=== PATIENT | male | born 1950 | race Caucasian/White ===

== ENCOUNTER 2018-02-16 18:14 | Emergency (ER) | payer MEDICARE, BC ==
[2018-02-16] MEDS ORDERED: Adacel (T-DAP) 0.5 ML SYRINGE ONE (18:40)
[2018-02-16] MEDS ORDERED: Lidocaine 1% 20 ML MDV ONE (18:40)
[2018-02-16] MEDS ORDERED: Bacitracin Zinc 1 Packet ONE (18:59)
--- NOTE | 2018-02-16 19:57 | RAD ---
LEFT THUMB 3 VIEWS: Date: 02/16/18 HISTORY: Laceration. COMPARISON: None. FINDINGS: There is a sagittal split throughout the distal phalanx of the thumb extending from the tuft to the b ase extending into the interphalangeal joint. Mild degenerative disease of the thumb interphalangeal joint. IMPRESSION: Nondisplaced sagittal split fracture of the distal phalanx of the thumb extending from the tuft to th e interphalangeal joint. POS: HOME
== END 2018-02-16 19:53 | disposition home or self-care (01) ==
LOC: SCSER 18:14
DX: S67.02XA Crushing injury of left thumb, initial encounter (principal); S62.525A Nondisplaced fracture of distal phalanx of left thumb, initial encounter for closed fracture; I25.2 Old myocardial infarction; I10 Essential (primary) hypertension; Z79.82 Long term (current) use of aspirin; Z79.899 Other long term (current) drug therapy; W23.0XXA Caught, crushed, jammed, or pinched between moving objects, initial encounter
CPT/HCPCS: 12001; 90471; 90715; J2001

== ENCOUNTER 2018-07-23 16:05 | Emergency (ER) | payer MEDICARE, BC | END 2018-07-23 16:53 | disposition home or self-care (01) | LOC: SCSER 16:05 | DX: S61.202A Unspecified open wound of right middle finger without damage to nail, initial encounter (principal); I25.2 Old myocardial infarction; I10 Essential (primary) hypertension; Z79.899 Other long term (current) drug therapy; W26.0XXA Contact with knife, initial encounter | CPT/HCPCS: 12001 ==

== ENCOUNTER 2018-11-04 07:33 | Inpatient (IN) | payer MEDICARE, BC ==
[~2018-11-04 07:33] MED LIST: Iopamidol 370 76% 100 ML VIAL ONE; Iopamidol 370 76% 50 ML VIAL FS ONE
[2018-11-04] MEDS ORDERED: Morphine 2 MG/ML SYRINGE ONE ×2 (07:56→08:54)
[2018-11-04 07:57] LABS: #Eosinphils 0.2 thou/uL (0.0-0.7); #Lymphocytes 1.3 thou/uL (1.20-3.40); #Monocytes 0.6 thou/uL (0.11-0.59); #Neutrophils 4.4 thou/uL (1.40-6.50); %Basophils 0.6 % (0.0-1.0); %Eosinophils 2.4 % (0.0-10.0); %Lymphocytes 19.6 % (21.0-51.0); %Monocytes 9.7 % (0.0-10.0); %Neutrophils 67.7 % (42.0-75.0); Mean Corpuscular HGB CONC 35.4 g/dL (32.0-36.0); Mean Corpuscular Hemoglobin 29.5 pg (27.0-31.0); Mean Corpuscular Volume 83.1 fL (78.0-98.0); Mean Platelet Volume 6.9 fL (7.4-10.4); Platelet Count 184 thou/uL (130-400); RBC Distribution Width 12.4 % (11.5-14.5); White Blood Cell (WBC) Count 6.5 thou/uL (4.8-10.8)
[2018-11-04] MEDS ORDERED: Lidocaine 1% (PF) 30 ML VIAL ONE (07:57)
[2018-11-04] MEDS ORDERED: Ondansetron PF 4 MG/2 ML Vial ONE (07:57)
[2018-11-04 08:05] LABS: INR-International Normal Ratio 1.1; PTT 32.7 SEC (22.9-36.1); Prothrombin Time 14.2 SEC (12.0-14.7)
[2018-11-04 08:19] LABS: ALT (SGPT) 22 U/L (8-55); AST (SGOT) 21 U/L (5-34); Albumin 4.1 g/dL (3.4-4.8); Alkaline Phosphatase 85 U/L (40-150); Anion Gap 13 mmol/L (10-20); BUN (Urea Nitrogen) 19 mg/dL (8.4-25.7); Bilirubin, Total 1.3 mg/dL (0.2-1.2); Calc. Creatinine Clearance 0 mL/min (70-130); Calcium 9.5 mg/dL (7.8-10.44); Carbon Dioxide 25 mmol/L (23-31); Chloride 105 mmol/L (98-107); Estimated GFR-MDRD 85; Globulin 2.5 g/dL (2.4-3.5); Glucose 142 mg/dL (80-115); Lipase 57 U/L (8-78); Potassium 4.2 mmol/L (3.5-5.1); Protein, Total 6.6 g/dL (5.8-8.1); Sodium 139 mmol/L (136-145)
[2018-11-04] MEDS ORDERED: Fentanyl 100 MCG/2 ML VIAL ONE (08:31)
[2018-11-04] MEDS ORDERED: Midazolam HCl 2 mg/2 ml Vial ONE (08:31)
[2018-11-04] MEDS ORDERED: Heparin 10,000 UNITS/1 ML VIAL ONE (08:42)
[2018-11-04] MEDS ORDERED: Aggrastat 12.5 MG/250 ML 250 ML ONE (09:05)
--- NOTE | 2018-11-04 09:11 | RAD ---
CHEST 1 VIEW PORTABLE: Date: 11/04/18 HISTORY: Chest pain, STEMI. COMPARISON: 05/19/11. FINDINGS: Postop midline sternotomy. Heart size is normal. Lungs are clear. IMPRESSION: No significant acute intrathoracic disease. Postop midline sternotomy. POS: [facility]
[2018-11-04] MEDS ORDERED: Milk Of Magnesia 30 ML UDCUP PO PRN (09:39)
[2018-11-04] MEDS ORDERED: Acetaminophen/Codeine 30-300mg Tablet PO PRN (09:39)
[2018-11-04] MEDS ORDERED: Nitroglycerin 0.4 MG TAB (25 Tab Bottle) SL PRN (09:39)
[2018-11-04] MEDS ORDERED: Mag-Al 1200 mg/1200 mg/30 ML UDCUP PO PRN (09:39)
[2018-11-04] MEDS ORDERED: Zolpidem Tartrate 5 MG TAB PO PRN (09:39)
[2018-11-04] MEDS ORDERED: traMADol HCl 50 MG TAB PO PRN (09:39)
[2018-11-04] MEDS ORDERED: Aggrastat 12.5 MG/250 ML 250 ML IVPB SCH (09:45)
[2018-11-04] MEDS ORDERED: Sodium Chloride 0.9% 1,000 ML IV SCH (09:45)
--- NOTE | 2018-11-04 10:57 | HP ---
CHIEF COMPLAINT: Chest pain. HISTORY OF PRESENT ILLNESS: Mr. Babcock is a pleasant 68-year-old white gentleman, patient of Dr. Alcon Mckinnon, who comes into the hospital for chest pain. He has a history of coronary artery disease with CABG x6 [place] [address] Pinedo. He had a WHITT to the LAD, a vein graft to the right coronary artery, a vein graft to the RPL, a vein graft to an OM1, a vein graft to an OM2, and a free radial to a diagonal. He woke up this morning, he was having his cup of coffee and felt a sudden onset of chest tightness and diaphoresis, and decided to come in and was found to have inferior ST elevations. Cardiology was consulted emergently, and he was taken to the catheterization lab emergently for this where he was found to have an occluded vein graft to the distal RCA and an occluded [place] RCA. Multiple attempts were done with several different wires to try to open up the vein graft which were unsuccessful. Multiple attempts were also done to try to open up the [place] right coronary artery and this was also unsuccessful. He already had collaterals from the left to the right, and he actually became more symptomatic when we injected the left coronary system as we filled his collaterals with contrast. His pain actually improved once the contrast cleared his left coronary system. His pain level is very minimal, it is about 1 or 2 out of 10, and he is lying comfortably on the bed. Decision was made to treat medically as we could not open any of those 2 arteries. We did find his vein grafts. He has a Y graft from the right, and the RPL graft is starting to degenerate, but it is patent to a very small RPL, and then he has a trifurcating bypass going to the left. His diagonal graft is actually occluded. Only, his vein to an OM1 and OM2 are open. The other one is flush occluded as we cannot see it, but looking at Dr. Pniedo's dictation from 2011, he anastomosed those 3 vein grafts in the same area. His WHITT to the LAD was patent to a very small diffusely diseased LAD. PAST MEDICAL HISTORY: 1. Hypertension. 2. Hyperlipidemia. 3. Moderate mitral regurgitation. 4. Polymyalgia rheumatica. PAST SURGICAL HISTORY: 1. Coronary artery bypass grafting x6 [place] [address] Pinedo. 2. Tonsillectomy. MEDICATIONS: 1. Aspirin 81 mg a day. 2. Coreg 6.25 mg b.i.d. 3. Lisinopril 5 mg a day. 4. Atorvastatin 80 mg a day. 5. Multivitamin daily. 6. Prilosec 10 mg a day. 7. Prednisone which he has been tapered off now. 8. Cosamin DS. ALLERGIES: PENICILLIN. SOCIAL HISTORY: No tobacco or drugs. He drinks alcohol socially. Drinks about 1 or 2 cups of coffee a day. FAMILY HISTORY: Father with bypass and diabetes. Sister had bypass. He has 3 sisters, 1 son, 1 daughter, who are alive and well. REVIEW OF SYSTEMS: A 12-point review of systems was done and was all negative unless stated in the History of Present Illness. PHYSICAL EXAMINATION: VITAL SIGNS: Temperature 98.2, pulse 78, respiratory rate 18, saturating 98% on 2 L nasal cannula, blood pressure 138/62. GENERAL: Awake, alert, oriented x3. No distress. HEENT: Normocephalic and atraumatic. NECK: Supple. LUNGS: Clear. CARDIOVASCULAR: S1 and S2. No S3 or S4. No murmurs. ABDOMEN: Soft. Positive bowel sounds. EXTREMITIES: No edema. SKIN: Warm and dry. LABORATORY DATA: Laboratory work was reviewed. CBC is unremarkable. Coags were reviewed. Chemistries were unremarkable. GFR was 85, glucose of 142, total bilirubin is 1.3. IMAGING STUDIES: Chest x-ray was reviewed. EKG was reviewed and shows inferior ST elevations with reciprocal anterior changes. ASSESSMENT: 1. Inferior ST-elevation myocardial infarction. 2. Coronary artery disease, status post CABG in 2011, 4/6 grafts patent. 3. Hyperlipidemia. 4. Hypertension. 5. Polymyalgia rheumatica. PLAN: 1. Medical therapy as we were unable to open up either the vein or the [place] RCA. He already has collaterals from the left, so this is probably a more chronic problem. 2. Continue Aggrastat for 6 hours. He already received Brilinta. We will plan on pulling the sheath 1 hour after Aggrastat has been stopped. 3. We will get echocardiogram. 4. Continue home regimen. He is in very good heart medications. 5. LV function was about 40% with inferior akinesis on the LV gram. We will repeat an echocardiogram. 6. PPI for stress ulcer prophylaxis. 7. Lovenox subcu for DVT prophylaxis. 8. Full code. 9. Disposition pending clinical evolution. Job ID: [id number]
[2018-11-04 11:06] LABS: CKMB 1.3 ng/mL (0-6.6); Troponin I Less than 0.010 ng/mL (< 0.028)
[2018-11-04] MEDS ORDERED: Morphine 2 MG/ML SYRINGE SLOW IVP PRN (12:46)
[2018-11-04 15:19] VITALS: BMI 27.7
[2018-11-04 16:15] LABS: CKMB 71.9 ng/mL (0-6.6)
[2018-11-04] MEDS: Carvedilol 6.25 MG TAB PO SCH (17:50)
[2018-11-04] MEDS ORDERED: Aspirin Chewable 81 MG TAB ONE (17:53)
[2018-11-04] MEDS: TICAGRELOR 90 MG TABLET PO SCH (21:17)
[2018-11-04] MEDS: Atorvastatin Calcium 40 MG TAB PO SCH (21:17)
[2018-11-05 05:59] LABS: #Eosinphils 0.1 thou/uL (0.0-0.7); #Lymphocytes 0.7 thou/uL (1.20-3.40); #Neutrophils 9.9 thou/uL (1.40-6.50); %Basophils 0.2 % (0.0-1.0); %Eosinophils 0.4 % (0.0-10.0); %Lymphocytes 6.3 % (21.0-51.0); %Monocytes 8.6 % (0.0-10.0); %Neutrophils 84.4 % (42.0-75.0); Hemoglobin 13.2 g/dL (14.0-18.0); Mean Corpuscular Hemoglobin 29.4 pg (27.0-31.0); Mean Corpuscular Volume 84.2 fL (78.0-98.0); Mean Platelet Volume 7.1 fL (7.4-10.4); Platelet Count 170 thou/uL (130-400); RBC Distribution Width 12.5 % (11.5-14.5); Red Blood Cell (RBC) Count 4.48 mill/uL (4.70-6.10); White Blood Cell (WBC) Count 11.7 thou/uL (4.8-10.8)
[2018-11-05 06:33] LABS: ALT (SGPT) 41 U/L (8-55); AST (SGOT) 176 U/L (5-34); Albumin 3.5 g/dL (3.4-4.8); Alkaline Phosphatase 68 U/L (40-150); Anion Gap 11 mmol/L (10-20); BUN (Urea Nitrogen) 18 mg/dL (8.4-25.7); Bilirubin, Total 2.3 mg/dL (0.2-1.2); Calc. Creatinine Clearance 109 mL/min (70-130); Calcium 8.9 mg/dL (7.8-10.44); Carbon Dioxide 23 mmol/L (23-31); Cardiac Risk 3.7 (Less than 4.5); Chloride 105 mmol/L (98-107); Cholesterol 84 mg/dl (< 200 Desired); Estimated GFR-MDRD Greater than 90; Glucose 124 mg/dL (80-115); HDL Cholesterol 23 mg/dL (>60 Neg Risk); LDL Cholesterol, Calculated 46 mg/dL; Potassium 3.9 mmol/L (3.5-5.1); Protein, Total 5.5 g/dL (5.8-8.1); Sodium 135 mmol/L (136-145); Triglycerides 74 mg/dL (Less than 150)
[2018-11-05 06:36] LABS: Free T4 (Free Thyroxine) 0.74 ng/dL (0.70-1.48); Thyroid Stimulating Hormone 3.3737 uIU/mL (0.35-4.94)
[2018-11-05] MEDS: Carvedilol 6.25 MG TAB PO SCH ×2 (09:33→18:32)
[2018-11-05] MEDS: Enoxaparin Sodium 40 MG/0.4 ML SYRINGE SC SCH (09:33)
[2018-11-05] MEDS: Aspirin Chewable 81 MG TAB PO SCH (09:33)
[2018-11-05] MEDS: Lisinopril 5 MG TAB PO SCH (09:34)
[2018-11-05] MEDS: TICAGRELOR 90 MG TABLET PO SCH ×2 (09:34→20:07)
[2018-11-05 10:30] LABS: Troponin I 41.707 ng/mL (< 0.028)
[2018-11-05] MEDS: Atorvastatin Calcium 40 MG TAB PO SCH (20:06)
[2018-11-06 05:48] LABS: #Eosinphils 0.1 thou/uL (0.0-0.7); #Lymphocytes 0.9 thou/uL (1.20-3.40); #Monocytes 0.7 thou/uL (0.11-0.59); #Neutrophils 5.2 thou/uL (1.40-6.50); %Basophils 0.4 % (0.0-1.0); %Eosinophils 1.5 % (0.0-10.0); %Monocytes 10.6 % (0.0-10.0); %Neutrophils 74.5 % (42.0-75.0); Hemoglobin 12.5 g/dL (14.0-18.0); Mean Corpuscular HGB CONC 34.5 g/dL (32.0-36.0); Mean Corpuscular Hemoglobin 29.4 pg (27.0-31.0); Mean Corpuscular Volume 85.3 fL (78.0-98.0); Mean Platelet Volume 7.2 fL (7.4-10.4); Platelet Count 151 thou/uL (130-400); RBC Distribution Width 12.5 % (11.5-14.5); Red Blood Cell (RBC) Count 4.24 mill/uL (4.70-6.10)
[2018-11-06 06:06] LABS: Anion Gap 10 mmol/L (10-20); BUN (Urea Nitrogen) 16 mg/dL (8.4-25.7); Calc. Creatinine Clearance 115 mL/min (70-130); Calcium 8.8 mg/dL (7.8-10.44); Carbon Dioxide 27 mmol/L (23-31); Chloride 103 mmol/L (98-107); Estimated GFR-MDRD Greater than 90; Glucose 95 mg/dL (80-115); Potassium 3.9 mmol/L (3.5-5.1); Sodium 136 mmol/L (136-145)
[2018-11-06] MEDS: Enoxaparin Sodium 40 MG/0.4 ML SYRINGE SC SCH (08:10)
[2018-11-06] MEDS: Carvedilol 6.25 MG TAB PO SCH ×2 (08:10→17:10)
[2018-11-06] MEDS: Aspirin Chewable 81 MG TAB PO SCH (08:10)
[2018-11-06] MEDS: TICAGRELOR 90 MG TABLET PO SCH ×2 (08:43→21:12)
[2018-11-06] MEDS: Lisinopril 5 MG TAB PO SCH ×2 (09:41→12:58)
[2018-11-06] MEDS: Atorvastatin Calcium 40 MG TAB PO SCH (21:12)
[2018-11-07 05:08] LABS: #Eosinphils 0.1 thou/uL (0.0-0.7); #Monocytes 0.7 thou/uL (0.11-0.59); #Neutrophils 4.8 thou/uL (1.40-6.50); %Basophils 0.3 % (0.0-1.0); %Eosinophils 1.9 % (0.0-10.0); %Monocytes 10.8 % (0.0-10.0); Hemoglobin 12.7 g/dL (14.0-18.0); Mean Corpuscular HGB CONC 34.9 g/dL (32.0-36.0); Mean Corpuscular Hemoglobin 29.4 pg (27.0-31.0); Mean Corpuscular Volume 84.2 fL (78.0-98.0); Mean Platelet Volume 7.3 fL (7.4-10.4); Platelet Count 141 thou/uL (130-400); RBC Distribution Width 12.4 % (11.5-14.5); Red Blood Cell (RBC) Count 4.31 mill/uL (4.70-6.10); White Blood Cell (WBC) Count 6.7 thou/uL (4.8-10.8)
[2018-11-07 05:24] LABS: Anion Gap 9 mmol/L (10-20); BUN (Urea Nitrogen) 14 mg/dL (8.4-25.7); Calc. Creatinine Clearance 105 mL/min (70-130); Calcium 8.9 mg/dL (7.8-10.44); Carbon Dioxide 28 mmol/L (23-31); Chloride 104 mmol/L (98-107); Estimated GFR-MDRD Greater than 90; Glucose 97 mg/dL (80-115); Potassium 3.9 mmol/L (3.5-5.1); Sodium 137 mmol/L (136-145)
[2018-11-07] MEDS: Carvedilol 6.25 MG TAB PO SCH ×2 (08:15→16:22)
[2018-11-07] MEDS: TICAGRELOR 90 MG TABLET PO SCH ×2 (08:16→21:48)
[2018-11-07] MEDS: Aspirin Chewable 81 MG TAB PO SCH (08:16)
[2018-11-07] MEDS: Enoxaparin Sodium 40 MG/0.4 ML SYRINGE SC SCH (08:17)
[2018-11-07] MEDS: Lisinopril 5 MG TAB PO SCH (11:50)
[2018-11-07] MEDS ORDERED: Sodium Chloride 0.9% 10 ML ONE (21:09)
[2018-11-07] MEDS: Atorvastatin Calcium 40 MG TAB PO SCH (21:48)
[2018-11-08 05:49] LABS: #Eosinphils 0.1 thou/uL (0.0-0.7); #Lymphocytes 0.7 thou/uL (1.20-3.40); #Monocytes 0.6 thou/uL (0.11-0.59); #Neutrophils 4.4 thou/uL (1.40-6.50); %Basophils 0.4 % (0.0-1.0); %Eosinophils 1.9 % (0.0-10.0); %Lymphocytes 12.4 % (21.0-51.0); %Monocytes 10.4 % (0.0-10.0); %Neutrophils 74.9 % (42.0-75.0); Hemoglobin 12.8 g/dL (14.0-18.0); Mean Corpuscular HGB CONC 34.1 g/dL (32.0-36.0); Mean Corpuscular Volume 85.2 fL (78.0-98.0); Platelet Count 161 thou/uL (130-400); RBC Distribution Width 12.4 % (11.5-14.5); Red Blood Cell (RBC) Count 4.41 mill/uL (4.70-6.10); White Blood Cell (WBC) Count 5.9 thou/uL (4.8-10.8)
[2018-11-08 06:13] LABS: Anion Gap 10 mmol/L (10-20); BUN (Urea Nitrogen) 16 mg/dL (8.4-25.7); Calc. Creatinine Clearance 111 mL/min (70-130); Carbon Dioxide 25 mmol/L (23-31); Chloride 106 mmol/L (98-107); Estimated GFR-MDRD Greater than 90; Glucose 99 mg/dL (80-115); Potassium 3.8 mmol/L (3.5-5.1); Sodium 137 mmol/L (136-145)
[2018-11-08] MEDS: Enoxaparin Sodium 40 MG/0.4 ML SYRINGE SC SCH (09:48)
[2018-11-08] MEDS: Carvedilol 6.25 MG TAB PO SCH (09:48)
[2018-11-08] MEDS: Aspirin Chewable 81 MG TAB PO SCH (09:48)
[2018-11-08] MEDS: TICAGRELOR 90 MG TABLET PO SCH (09:48)
[2018-11-08 11:51] VITALS: BP 108/57; TEMP 97.5
[2018-11-08] MEDS ORDERED: Rivaroxaban 2.5 MG TAB PO SCH (21:00)
--- NOTE | 2018-11-09 04:46 | DIS ---
DATE OF ADMISSION: 11/04/2018 DATE OF DISCHARGE: 11/08/2018 DISCHARGE DIAGNOSES: 1. Inferior ST-segment elevation myocardial infarction secondary to closure of right coronary artery graft. 2. Inability to open the graft or the [place] vessel. 3. Status post coronary artery bypass graft x6 in 2011 with 4 of 6 grafts patent. 4. Hyperlipidemia, under good control. 5. Hypertension. 6. Ejection fraction 40% at catheterization. 7. Positive family history. 8. Mitral regurgitation. 9. Polymyalgia rheumatica. HOSPITAL COURSE: Mr. Babcock awoke on the morning of admission coughing and had sudden onset of chest tightness, diaphoresis, and came to the emergency room. He was found to have an inferior STEMI with 1-[address]-elevation in II, III, and F. He was taken to the label stitcher emergently by Dr. Wallace. He was found to have an occluded graft to the right coronary artery that was piggybacked onto the right posterior descending graft. Multiple attempts were made to try to wire the totally occluded graft, which were unsuccessful. Also, an attempt was made to wire the totally occluded right coronary artery, which also was unsuccessful. It was felt best to treat him medically at that point. Also, he was found to have the radial graft to the diagonal which was piggybacked onto the first obtuse marginal graft was occluded. His patent grafts are WHITT to LAD, graft to the first obtuse marginal, graft to the second obtuse marginal, piggybacked on to the first obtuse marginal graft. Also, there was a graft to the right posterior descending that was diffusely diseased. He did not have any further chest discomfort after admission and was ambulating 580 feet in the [place] at the time of discharge. With his vascular disease and closures of his grafts, he was placed on Xarelto 2.5 mg b.i.d. His cholesterol is 84, triglycerides 74, HDL 23, LDL 46. His troponin I peaked at 41.707. DISCHARGE MEDICATIONS: 1. Aspirin 81 daily. 2. Xarelto 2.5 mg b.i.d. 3. Atorvastatin 80 mg at bedtime. 4. Carvedilol 6.25 b.i.d. 5. Lisinopril 5 mg daily. 6. Nitroglycerin p.r.n. Job ID: [id number] [facility]
[2018-11-09] MEDS ORDERED: Lisinopril 5 MG TAB PO SCH (09:00)
== END 2018-11-08 13:41 | disposition home or self-care (01) | DRG 281 ==
LOC: ERS 07:33 → CCL 07:54 → ERS 08:20 → CCU 08:48 → 2NO 11-06 20:40
PROVIDERS: ADMIT Internal Medicine Cardiovascular Disease; ATTEND Internal Medicine Cardiovascular Disease
PROC: 4A023N7 Measurement of Cardiac Sampling and Pressure, Left Heart, Percutaneous Approach (ICD-10-PCS; principal; 2018-11-04)
PROC: B2131ZZ Fluoroscopy of Multiple Coronary Artery Bypass Grafts using Low Osmolar Contrast (ICD-10-PCS; 2018-11-04)
PROC: B2111ZZ Fluoroscopy of Multiple Coronary Arteries using Low Osmolar Contrast (ICD-10-PCS; 2018-11-04)
PROC: B2181ZZ Fluoroscopy of Left Internal Mammary Bypass Graft using Low Osmolar Contrast (ICD-10-PCS; 2018-11-04)
PROC: B2151ZZ Fluoroscopy of Left Heart using Low Osmolar Contrast (ICD-10-PCS; 2018-11-04)
DX: I21.19 ST elevation (STEMI) myocardial infarction involving other coronary artery of inferior wall (principal); I25.810 Atherosclerosis of coronary artery bypass graft(s) without angina pectoris; E78.5 Hyperlipidemia, unspecified; I10 Essential (primary) hypertension; M35.3 Polymyalgia rheumatica; I34.0 Nonrheumatic mitral (valve) insufficiency; Z79.82 Long term (current) use of aspirin; Z95.1 Presence of aortocoronary bypass graft
CPT/HCPCS: 36415; 71045; 80048; 80053; 80061; 82553; 83690; 83880; 84439; 84443; 84484; 85025; 85347; 85610; 85730; 93005; 93010; 93306; 93459; 93798; 96365; 96374; 96375; 99152; 99153; C1757; C1769; C1887; J1644; J1650; J2001; J2250; J2270; J2405; J3010; J3246; Q9967

== ENCOUNTER 2018-11-10 20:38 | Observation (INO) | payer MEDICARE, BC ==
--- NOTE | 2018-11-10 21:04 | RAD ---
EXAM: Single view of the chest HISTORY: Left neck and shoulder pain COMPARISON: 11/04/2018 FINDINGS: Single view of the chest shows a normal sized cardiomediastinal silhouette. The patient is status post sternotomy. There is no evidence of consolidation, mass, or pleural effusion. The bones are unremarkable. IMPRESSION: No evidence of acute cardiopulmonary disease
[2018-11-10 21:11] LABS: #Eosinphils 0.2 thou/uL (0.0-0.7); #Lymphocytes 1.4 thou/uL (1.20-3.40); #Monocytes 0.6 thou/uL (0.11-0.59); #Neutrophils 4.7 thou/uL (1.40-6.50); %Basophils 0.3 % (0.0-1.0); %Eosinophils 2.7 % (0.0-10.0); %Lymphocytes 20.3 % (21.0-51.0); %Monocytes 8.7 % (0.0-10.0); Hemoglobin 14.6 g/dL (14.0-18.0); Mean Corpuscular HGB CONC 34.7 g/dL (32.0-36.0); Mean Corpuscular Hemoglobin 29.4 pg (27.0-31.0); Mean Corpuscular Volume 84.7 fL (78.0-98.0); Mean Platelet Volume 6.9 fL (7.4-10.4); Platelet Count 210 thou/uL (130-400); RBC Distribution Width 12.4 % (11.5-14.5); Red Blood Cell (RBC) Count 4.97 mill/uL (4.70-6.10); White Blood Cell (WBC) Count 6.9 thou/uL (4.8-10.8)
[2018-11-10 21:32] LABS: ALT (SGPT) 39 U/L (8-55); AST (SGOT) 35 U/L (5-34); Albumin 4.3 g/dL (3.4-4.8); Alkaline Phosphatase 90 U/L (40-150); Anion Gap 13 mmol/L (10-20); BUN (Urea Nitrogen) 19 mg/dL (8.4-25.7); Bilirubin, Total 1.8 mg/dL (0.2-1.2); CK (CPK) 79 U/L (30-200); Calc. Creatinine Clearance 0 mL/min (70-130); Calcium 9.5 mg/dL (7.8-10.44); Carbon Dioxide 26 mmol/L (23-31); Chloride 103 mmol/L (98-107); Estimated GFR-MDRD 85; Globulin 2.5 g/dL (2.4-3.5); Glucose 94 mg/dL (80-115); Potassium 3.9 mmol/L (3.5-5.1); Protein, Total 6.8 g/dL (5.8-8.1); Sodium 138 mmol/L (136-145)
[2018-11-10 21:57] LABS: CKMB 1.3 ng/mL (0-6.6)
[2018-11-10 23:33] VITALS: BMI 26.2
[2018-11-11 01:32] LABS: Critical Call Chem Troponin I RESULT DECREASING; Troponin I 1.961 ng/mL (< 0.028)
[2018-11-11 04:55] LABS: Critical Call Chem Troponin I RESULT DECREASING; Troponin I 1.698 ng/mL (< 0.028)
[2018-11-11] MEDS ORDERED: Nitroglycerin 0.4 MG TAB (25 Tab Bottle) SL PRN (07:56)
[2018-11-11] MEDS: Carvedilol 6.25 MG TAB PO SCH ×2 (08:36→15:46)
[2018-11-11] MEDS: Aspirin Chewable 81 MG TAB PO SCH (08:37)
[2018-11-11] MEDS: Lisinopril 5 MG TAB PO SCH (08:37)
[2018-11-11] MEDS: Multivitamin W/ Minerals 1 TAB PO SCH (08:37)
[2018-11-11] MEDS ORDERED: Non-Formulary Item 1 EACH (Multivitamin With Minerals [Multiple Vitamin] 1 TABLET) PO SCH (09:00)
[2018-11-11] MEDS: Rivaroxaban 2.5 MG TAB PO SCH ×2 (10:15→22:29)
[2018-11-11 14:50] LABS: CKMB 1.4 ng/mL (0-6.6)
[2018-11-11] MEDS ORDERED: Ketorolac Tromethamine 30 MG/ML VIAL IVP SCH ×3 (15:15→22:00)
--- NOTE | 2018-11-11 15:39 | PRG ---
DATE OF SERVICE: 11/11/2018 SUBJECTIVE: Mr. Babcock is a 68-year-old gentleman with a recent myocardial infarction of the inferior wall. The saphenous vein graft to the right coronary was a culprit vessel that could not be opened and the [place] right coronary cannot be opened. He has been treated medically. He came in with some left upper muscular pain, very different from his myocardial infarction. The patient is extremely concerned about this. He is not having any other recurrent angina. OBJECTIVE: VITAL SIGNS: Blood pressure 106/62, pulse 68. LUNGS: Clear. CARDIAC: Normal S1. Normal S2. ASSESSMENT: 1. Recent myocardial infarction. 2. Atypical chest pain, sounds musculoskeletal, possible muscle spasm, but he is extremely concerned about it. PLAN: 1. Give him a dose of Toradol tonight and tomorrow morning. 2. Repeat troponin level tomorrow. 3. He should be able to be released home tomorrow to follow up with Dr. Mckinnon as an outpatient. Job ID: [id number]
[2018-11-11] MEDS ORDERED: Prevnar 13-Val Conj/PF 0.5 ML SYRINGE IM ONE (21:00)
[2018-11-11] MEDS ORDERED: Atorvastatin Calcium 40 MG TAB PO SCH (21:00)
[2018-11-12 05:43] LABS: Hemoglobin 13.3 g/dL (14.0-18.0); Platelet Count 169 thou/uL (130-400)
[2018-11-12 05:59] LABS: Anion Gap 12 mmol/L (10-20); BUN (Urea Nitrogen) 19 mg/dL (8.4-25.7); Calc. Creatinine Clearance 100 mL/min (70-130); Calcium 8.9 mg/dL (7.8-10.44); Carbon Dioxide 26 mmol/L (23-31); Chloride 105 mmol/L (98-107); Estimated GFR-MDRD Greater than 90; Glucose 89 mg/dL (80-115); Potassium 3.8 mmol/L (3.5-5.1); Sodium 139 mmol/L (136-145)
[2018-11-12 06:19] LABS: Critical Call Chem Troponin I RESULT DECREASING
--- NOTE | 2018-11-12 08:37 | HP ---
The patient was seen and examined on November 11, 2018. CHIEF COMPLAINT: Left-sided neck/shoulder pain. HISTORY OF PRESENT ILLNESS: The patient is a 68-year-old male with recent inferior ST-elevation [place] secondary to closure of the right coronary artery graft, presented to the hospital with above complaints. He was admitted at this facility from November 04, 2018 till November 08, 2018. He underwent cardiac catheterization that showed four of the six grafts patent. Ejection fraction was 40%. He felt okay on the day of discharge. Yesterday while he was at home, he had sudden onset of left-sided shoulder and neck pain. It was pressure-like, constant without any nausea, vomiting, lightheadedness, dizziness, syncope or palpitations. It was moderate in intensity. No aggravating or relieving factor. He denies any fever, chills, or heartburn. In the emergency room, his initial vital signs showed temperature 98.1, respirations 20, pulse of 69, blood pressure of 146/72, with O2 saturation 100% on room air. His troponin in the emergency room was 2.327. PAST MEDICAL HISTORY: 1. Recent inferior ST-elevation [place] secondary to closure of the right coronary artery graft. 2. Coronary artery disease status post coronary artery bypass grafting in 2011. Recent cardiac catheterization showed four of six grafts patent. 3. Hyperlipidemia. 4. Hypertension. 5. Congestive heart failure with ejection fraction of 40% at the recent cardiac catheterization. 6. Family history of heart disease. 7. Polymyalgia rheumatica. 8. Moderate mitral regurgitation. PAST SURGICAL HISTORY: 1. Coronary artery bypass grafting x6 in 2011. 2. Tonsillectomy. ALLERGIES: THE PATIENT IS ALLERGIC TO PENICILLIN. CURRENT MEDICATION: 1. Aspirin 81 mg daily. 2. Lisinopril 5 mg daily. 3. Multivitamin one tablet daily. 4. Sublingual nitroglycerin as needed. 5. Lipitor 80 mg at bedtime. 6. Carvedilol 6.25 mg b.i.d. 7. Xarelto 2.5 mg b.i.d.. SOCIAL HISTORY: The patient currently lives at home. Drinks alcohol socially. He is full code, makes his own decision with the help of his spouse. FAMILY HISTORY: Diabetes runs in his family. Father had coronary artery bypass grafting. Sister also had coronary artery bypass grafting. REVIEW OF SYSTEMS: All other review of systems was reviewed and were found negative. PHYSICAL EXAMINATION: VITAL SIGNS: As discussed above. GENERAL: A 68-year-old male in no apparent distress. Denies any chest discomfort at this time. HEENT: Head, atraumatic and normocephalic. Sclerae anicteric. Moist mucous membranes. No oral lesion. NECK: Supple. No JVD appreciated. No carotid bruit. LUNGS: Clear to auscultation bilaterally. HEART: S1, S2 present. Regular rate and rhythm. No rubs or gallops. ABDOMEN: Soft, nontender. Bowel sounds present. EXTREMITIES: No edema or calf tenderness. NEUROLOGIC: Grossly nonfocal. Moves all 4 extremities. PSYCHIATRY: Alert, awake, and oriented x3. SKIN: Warm and dry. LABORATORY FINDINGS: Troponin 2.3 with CK-MB 1.3. WBC 14.6, hematocrit 42.1, BUN 19, creatinine 0.82. Chest x-ray by my review was negative for infiltrate. EKG by my review showed sinus rhythm with ST-T wave changes in the lateral and inferior leads. IMPRESSION: 1. Chest discomfort. 2. Recent inferior ST-elevation myocardial infarction secondary to closure of the right coronary artery graft. 3. Hypertension. 4. Hyperlipidemia. 5. Ejection fraction of 40% on a recent cardiac catheterization. 6. Moderate mitral regurgitation. 7. Polymyalgia rheumatica. 8. Coronary artery disease status post coronary artery bypass grafting x6 in 2012 (four of six grafts are patent). PLAN: The patient will be monitored on the telemetry unit as 23-hour observation. Cardiology will be consulted. We will continue aspirin with Xarelto. Resume statins. Continue carvedilol and lisinopril. We will repeat echocardiogram. Telemetry monitoring. Plan of care was discussed with the patient in detail. He stated understanding. Job ID: [id number]
[2018-11-12] MEDS: Carvedilol 6.25 MG TAB PO SCH (09:30)
[2018-11-12] MEDS: Aspirin Chewable 81 MG TAB PO SCH (09:32)
[2018-11-12] MEDS: Rivaroxaban 2.5 MG TAB PO SCH (09:32)
[2018-11-12] MEDS: Lisinopril 5 MG TAB PO SCH (09:32)
[2018-11-12] MEDS: Multivitamin W/ Minerals 1 TAB PO SCH (09:32)
--- NOTE | 2018-11-12 09:55 | PRG ---
DATE OF SERVICE: 11/12/2018 SUBJECTIVE: Mr. Babcock has done very well. His left shoulder pain has resolved. No chest pain. OBJECTIVE: VITAL SIGNS: Blood pressure 118/69, pulse 70. LUNGS: Clear. CARDIAC: Normal S1, normal S2. ABDOMEN: Soft and nontender. ASSESSMENT: 1. Left shoulder pain, musculoskeletal. 2. Recent myocardial infarction. The troponin levels continue to trend down. Troponin 0.87 today. 3. Ejection fraction 40% to 45% with inferior severe hypokinesis due to the recent infarction. PLAN: Okay to go home. He will take Tylenol if needed for the left shoulder pain. He is on aspirin and Xarelto. Therefore, would need to avoid nonsteroidal anti-inflammatories, but if he does have severe pain, could likely take one dose of ibuprofen 400 mg x1 only with relatively low risk of bleeding. Job ID: [id number]
--- NOTE | 2018-11-12 11:39 | DIS ---
DATE OF ADMISSION: 11/10/2018 DATE OF DISCHARGE: 11/12/2018 DISCHARGE DISPOSITION: Home. FOLLOWUP: 1. Follow up with Dr. Noguera in 1 week. 2. Follow up with Dr. Mckinnon, Cardiology in 1 to 2 weeks. HISTORY: The patient was seen on the day of discharge. Denies any new complaints. No chest pain, shortness of breath, or palpitations reported. DISCHARGE MEDICATIONS: Same as admission medications. BRIEF HOSPITAL COURSE: The patient is a 68-year-old male with recent inferior ST-elevation [place] secondary to closure of the right coronary artery graft, presented to the hospital with left-sided neck/shoulder pain. His troponin on admission was 2.37 with normal CK-MB. He was monitored on telemetry unit. He was evaluated by Cardiology. Echocardiogram showed ejection fraction of 40% to 45% with mild inferior hypokinesis and trace tricuspid regurgitation. His chest x-ray was negative for infiltrate. He received Toradol during this hospital stay per Cardiology recommendation. His chest pain is unlikely to be due to cardiac etiology. The patient has been cleared for discharge by Cardiology. FINAL DIAGNOSES: 1. Atypical chest pain, acute coronary syndrome ruled out. 2. Recent inferior ST-elevation myocardial infarction secondary to occlusion of the right coronary artery graft. 3. Coronary artery disease, status post coronary artery bypass grafting in 2011. 4 of the 6 grafts are patent. 4. Hyperlipidemia. 5. Hypertension. 6. Chronic systolic heart failure, ejection fraction 40% to 45% range. 7. Family history of heart disease. 8. Moderate mitral regurgitation. 9. Polymyalgia rheumatica. 10. Trace tricuspid regurgitation. PLAN: Plan of care was discussed with the patient and the family in detail. They stated understanding. Job ID: [id number]
[2018-11-12 12:03] VITALS: BP 111/58; TEMP 98.3
--- NOTE | 2018-11-18 13:21 | EKG ---
Test Reason : Blood Pressure : / mmHG Vent. Rate : 066 BPM Atrial Rate : 066 BPM P-R Int : 156 ms QRS Dur : 088 ms QT Int : 378 ms P-R-T Axes : 048 011 -30 degrees QTc Int : 396 ms Normal sinus rhythm Inferior infarct , age undetermined Abnormal ECG Confirmed by GERMAN GOULD, ARNAV Chamorro ([id number]), news videotape editor SHENA ZENDEJAS ([id number]) on 11/18/2018 1:20:57 PM Referred By: Confirmed By:ARNAV PORTER MD
== END 2018-11-12 11:45 | disposition home or self-care (01) ==
LOC: ERS 20:38 → 2SW 23:26
PROVIDERS: ADMIT Hospitalist; ATTEND Hospitalist
DX: R07.89 Other chest pain (principal); I25.2 Old myocardial infarction; I25.810 Atherosclerosis of coronary artery bypass graft(s) without angina pectoris; E78.5 Hyperlipidemia, unspecified; I11.0 Hypertensive heart disease with heart failure; I50.22 Chronic systolic (congestive) heart failure; M35.3 Polymyalgia rheumatica; I34.0 Nonrheumatic mitral (valve) insufficiency; Z79.01 Long term (current) use of anticoagulants; Z79.82 Long term (current) use of aspirin; Z79.899 Other long term (current) drug therapy; Z88.0 Allergy status to penicillin
CPT/HCPCS: 71045; 80048; 80053; 82550; 82553 ×2; 84484 ×4; 85014; 85018; 85025; 85049; 90670; 93005; 93306; 94760; 96374; 96376; 99285; G0009; G0378 ×4; 36415; 90471; J1885

== ENCOUNTER 2022-08-18 14:46 | Outpatient (CLI) | payer MEDICARE, BC | END 2022-08-18 14:47 | disposition home or self-care (01) | LOC: BICRAD 14:46 | PROVIDERS: ATTEND Internal Medicine Rheumatology | DX: M35.3 Polymyalgia rheumatica (principal) | CPT/HCPCS: 71046 ==

== ENCOUNTER 2023-01-25 13:48 | Outpatient (CLI) | payer MEDICARE, BC | END 2023-01-25 13:49 | disposition home or self-care (01) | LOC: BICMAMMO 13:48 | PROVIDERS: ATTEND Internal Medicine Rheumatology | DX: M81.0 Age-related osteoporosis without current pathological fracture (principal); M85.89 Other specified disorders of bone density and structure, multiple sites | CPT/HCPCS: 77080 ==

== ENCOUNTER 2023-04-28 13:05 | Outpatient (CLI) | payer MEDICARE, BC | END 2023-04-28 13:06 | disposition home or self-care (01) | LOC: RAD 13:05 | PROVIDERS: ATTEND Internal Medicine Rheumatology | DX: M81.0 Age-related osteoporosis without current pathological fracture (principal); M47.814 Spondylosis without myelopathy or radiculopathy, thoracic region | CPT/HCPCS: 72070 ==